=== PATIENT | female | born 2000 | race Hispanic/Latino ===

== ENCOUNTER 2022-12-25 22:54 | Observation (INO) | payer OTHER ==
[2022-12-25 23:26] LABS: #Eosinphils 0.3 thou/uL (0.0-0.7); #Monocytes 0.4 thou/uL (0.11-0.59); #Neutrophils 4.3 thou/uL (1.40-6.50); %Basophils 0.3 % (0.0-1.0); %Eosinophils 3.8 % (0.0-10.0); %Lymphocytes 30.5 % (21.0-51.0); %Monocytes 5.2 % (0.0-10.0); %Neutrophils 60.1 % (42.0-75.0); Hematocrit 40.7 % (36.0-47.0); Hemoglobin 13.6 g/dL (12.0-16.0); Mean Corpuscular HGB CONC 33.4 g/dL (32.0-36.0); Mean Corpuscular Hemoglobin 29.7 pg (27.0-31.0); Mean Corpuscular Volume 88.9 fl (78.0-98.0); Mean Platelet Volume 10.3 fL (7.4-10.4); Platelet Count 300 10x3/uL (130-400); RBC Distribution Width 13.7 % (11.5-14.5); Red Blood Cell (RBC) Count 4.58 mill/uL (4.20-5.40); White Blood Cell (WBC) Count 7.2 10x3/uL (4.8-10.8)
[2022-12-25] MEDS ORDERED: Ondansetron PF 4 MG/2 ML Vial ONE (23:27)
[2022-12-25] MEDS ORDERED: Morphine 4 MG/ML VIAL ONE (23:27)
[2022-12-25 23:33] LABS: BHCG - Serum Negative (NEGATIVE); Pregs Control Background? CLEAR/WHITE (CLR/WHITE); Pregs Control Bar Appear? YES (CONTROL BAR)
[2022-12-26 00:25] LABS: Bacteria/HPF 1+ HPF (None Seen); Bilirubin Negative (Negative); Blood, Urine Negative (Negative); CAUTI Indications for Culture Pelvic or flank pain; Clarity Clear (Clear); Glucose, Urine (Dipstick) Normal (Negative); Ketone, Urine Negative (Negative); Leukocyte Negative Leu/uL (Negative); Nitrite Negative (Negative); Protein, Urine (Dipstick) Negative (Neg-Trace); RBC/HPF 0-3 HPF (0-3); Specific Gravity, Urine 1.015 (1.002-1.036); Urobilinogen Normal mg/dL (Less than 2); WBC/HPF 0-3 HPF (0-3); pH, Urine 6.5 (5.0-9.0)
[2022-12-26 00:26] LABS: Urine Culture Reflex No No
[2022-12-26 00:35] LABS: ALT (SGPT) 192 U/L (8-55); AST (SGOT) 145 U/L (5-34); Alkaline Phosphatase 91 U/L (40-110); Anion Gap 13 mmol/L (10-20); BUN (Urea Nitrogen) 9 mg/dL (7.0-18.7); Bilirubin, Total 0.6 mg/dL (0.2-1.2); Calc. Creatinine Clearance 0 mL/min (70-130); Calcium 9.3 mg/dL (7.8-10.44); Carbon Dioxide 24 mmol/L (22-29); Chloride 103 mmol/L (98-107); Estimated GFR 112; Globulin 3.6 g/dL (2.4-3.5); Glucose 105 mg/dL (70-105); Potassium 3.7 mmol/L (3.5-5.1); Protein, Total 7.6 g/dL (6.0-8.3); Sodium 136 mmol/L (136-145)
[2022-12-26 00:38] LABS: Troponin I Less than 0.010 ng/mL (< 0.028)
[2022-12-26 00:51] LABS: SARS-CoV-2 NAA Rapid Test Not Detected (NotDetected)
[2022-12-26] MEDS ORDERED: Piperacillin/Tazobactam 4.5 GM VIAL ONE (01:11)
[2022-12-26] MEDS ORDERED: Morphine 4 MG/ML VIAL ONE (01:42)
[2022-12-26] MEDS ORDERED: Morphine 4 MG/ML VIAL SLOW IVP PRN (02:52)
[2022-12-26] MEDS ORDERED: Ondansetron ODT 4 MG TAB SL PRN (03:00)
[2022-12-26] MEDS ORDERED: Ondansetron PF 4 MG/2 ML Vial IVP PRN (03:00)
[2022-12-26 03:14] VITALS: BMI 37.3
[2022-12-26] MEDS: D5 1/2 NS w/20 mEq KCL 1,000 ML IV SCH ×2 (05:11→13:44)
[2022-12-26] MEDS ORDERED: Piperacillin/Tazobactam 3.375 GM in Sodium Chloride 0.9% 100 ML IVPB SCH (06:00)
[2022-12-26] MEDS ORDERED: EPINEPHrine 1 MG/ML AMP ONE (06:48)
[2022-12-26] MEDS ORDERED: Lidocaine 1% (PF) 30 ML VIAL ONE (06:48)
[2022-12-26] MEDS ORDERED: Bupivacaine PF 0.5% 30 ML VIAL ONE (06:48)
[2022-12-26] MEDS ORDERED: SUGAMMADEX SODIUM 200 MG/2 ML VIAL ONE (07:18)
[2022-12-26] MEDS ORDERED: fentaNYL 50 mcg/mL 1 mL Vial ONE ×3 (07:18→09:34)
[2022-12-26] MEDS ORDERED: Ondansetron PF 4 MG/2 ML Vial ONE (07:47)
[2022-12-26] MEDS ORDERED: Rocuronium Bromide 10 MG/ML (10ML VIAL) ONE (07:47)
[2022-12-26] MEDS ORDERED: Lidocaine 1% PF 5 ML VIAL ONE (07:47)
[2022-12-26] MEDS ORDERED: Dexamethasone 20 MG/5 ML VIAL ONE (07:47)
[2022-12-26] MEDS ORDERED: PROPOFOL 200 MG/20 ML VIAL ONE (07:47)
[2022-12-26] MEDS ORDERED: Ondansetron HCl/PF 4 MG/2 ML Vial IVP PRN (09:12)
[2022-12-26] MEDS ORDERED: Promethazine HCl 25 MG/ML VIAL IM PRN (09:12)
[2022-12-26] MEDS ORDERED: traMADol HCl 50 MG TAB PO PRN (13:52)
[2022-12-26] MEDS ORDERED: Ondansetron ODT 4 MG TAB PO PRN (13:57)
[2022-12-26] MEDS: traMADol HCl 50 MG TAB PO SCH ×2 (17:44→23:01)
[2022-12-26] MEDS: Acetaminophen 325 MG TAB PO SCH ×2 (17:45→23:03)
[2022-12-26] MEDS: Ibuprofen 200 MG TAB PO SCH ×2 (17:45→23:03)
[2022-12-27 00:23] VITALS: BP 125/84; TEMP 97.7
== END 2022-12-27 01:12 ==
LOC: EEVIPCON 22:54 → ERS 22:54 → SURG B 12-26 01:29
PROVIDERS: ADMIT Surgery; ATTEND Surgery
PROC: 0FT44ZZ Resection of Gallbladder, Percutaneous Endoscopic Approach (ICD-10-PCS; principal; 2022-12-26)
DX: K80.12 Calculus of gallbladder with acute and chronic cholecystitis without obstruction (principal); E66.9 Obesity, unspecified; Z68.37 Body mass index [BMI] 37.0-37.9, adult
CPT/HCPCS: 76705; 80053; 81001; 83690; 84484; 84703; 85025; 88304; 93005; 96365; 96375; 96376; C1889; G0378; J0171; J1100; J2001; J2270; J2405; J2543; J2704; J3010; J3480; J3490; S0020; U0002